=== PATIENT | female | born 1995 | race Asian ===

== ENCOUNTER 2017-06-18 07:04 | Emergency (ER) | payer SELFPAY ==
[2017-06-18 07:18] VITALS: BP 90/51
[2017-06-18] MEDS ORDERED: Rabies VIRUS VACCINE (Imovax)* 2.5 UNIT/ML 1 ML IM ONE (07:24)
--- NOTE | 2017-06-18 07:30 | UC ---
Bite Injury/Animal HPI - HPI Summary HPI Summary: 21yo female with a recent bite to her right lower abdomen while vacationing in the [facility] last month. Pt has already had rabies vaccine x2 and is here today for her 3rd vaccine in the series of 4. Wound healing well, no complaints today. - History of Current Complaint Chief Complaint: UCSkin Stated Complaint: PIG BITE Time Seen by Provider: 06/18/17 07:12 Hx Last Menstrual Period: 06/04/2017 ?: No Severity Initially: Mild Onset/Duration: Sudden Onset Type of Bite: Animal - Pig Character: Puncture Hx of Bite: Unprovoked - Allergies/Home Medications Allergies/Adverse Reactions: Allergies Allergy/AdvReac Type Severity Reaction Status Date / Time No Known Allergies Allergy Verified 06/18/17 07:18 Home Medications: Home Medications Unobtainable [Unobtainable] 06/18/17 [History Confirmed 06/18/17] PMH/Surg Hx/FS Hx/Imm Hx Previously Healthy: Yes - Surgical History Surgical History: None - Social History Alcohol Use: None Substance Use Type: None Smoking Status (MU): Never Smoked Tobacco - Immunization History Most Recent Tetanus Shot: 06/10/2017 Review of Systems Constitutional: Negative Skin: Other - pig bite on right lower abd Eyes: Negative ENT: Negative Respiratory: Negative Cardiovascular: Negative Gastrointestinal: Negative Genitourinary: Negative Motor: Negative Neurovascular: Negative Musculoskeletal: Negative Neurological: Negative Psychological: Negative All Other Systems Reviewed And Are Negative: Yes Physical Exam Triage Information Reviewed: Yes Vital Signs: Initial Vital Signs Temp 36.6 C 06/18/17 07:10 Pulse 60 06/18/17 07:10 Resp 16 06/18/17 07:10 BP 90/51 06/18/17 07:10 Pulse Ox 98 06/18/17 07:10 Eye Exam: Normal ENT Exam: Normal Dental Exam: Normal Neck exam: Normal Neck: Positive: 1 Respiratory Exam: Normal Cardiovascular Exam: Normal Abdominal Exam: Normal Musculoskeletal Exam: Normal Neurological Exam: Normal Psychological Exam: Normal Skin Exam: Other - old bite wound on right lower abd healing well, almost completely healed hypopigmented area, collagen remodeling stage 4 Bite Injury Course/Dx - Course Course Of Treatment: Imavax adminstered on left deltoid. Pt to return for her 4th dose of Imavax. - Differential Dx/Diagnosis Provider Diagnoses: pig bite Discharge - Discharge Plan Condition: Good Disposition: HOME Patient Education Materials: Rabies Vaccine (By injection) Additional Instructions: return for 4th vaccine in one week (day#14)
== END 2017-06-18 08:35 | disposition home or self-care (01) ==
LOC: UCEAST 07:04
DX: S31.1 Open wound of abdominal wall without penetration into peritoneal cavity (principal); W55.41 Bitten by pig; Z23 Encounter for immunization
CPT/HCPCS: 99201; G0463

== ENCOUNTER 2017-06-25 07:23 | Emergency (ER) | payer SELFPAY ==
[2017-06-25 07:31] VITALS: BP 92/58
[2017-06-25] MEDS ORDERED: Rabies VIRUS VACCINE (Imovax)* 2.5 UNIT/ML 1 ML IM ONE (07:36)
--- NOTE | 2017-06-25 08:37 | UC ---
Tomer Vasquez Angela, scribed for [facility] on 06/25/17 at 0804 . Bite Injury/Animal HPI - HPI Summary HPI Summary: In Room Note: This pt is a 21 y/o female presenting to [facility] for a rabies vaccine. Pt reports she was vacationing in the [facility] last month and was bitten by a pig. She states they had a pig island and one of them walked up to her and bit her on her abdomen. This pt has had 3 rabies vaccine in a series of 4. This is her fourth vaccine today. Pt denies any complaints, fever, abd pain. She notes having normal bowel movements. She denies any PMHx. Note: Vital signs are stable. Pt is afebrile. She was seen for her third rabies vaccine on 06/18 and now she is back a week later. Nurse's Note: rabies vaccine d/t pig bite. - History of Current Complaint Chief Complaint: UCBiteInjury Stated Complaint: RABIES Hx Obtained From: Patient Hx Last Menstrual Period: 05/31/17 Severity Currently: None Pain Intensity: 0 Pain Scale Used: 0-10 Numeric Type of Bite: Animal - pig Has Animal Been Immunized?: Unknown Character: Abrasion/Laceration Associated Signs And Symptoms: Positive: Negative Hx of Bite: Unprovoked - Allergies/Home Medications Allergies/Adverse Reactions: Allergies Allergy/AdvReac Type Severity Reaction Status Date / Time No Known Allergies Allergy Verified 06/25/17 07:27 Home Medications: Home Medications NK [No Home Medications Reported] 06/25/17 [History Confirmed 06/25/17] PMH/Surg Hx/FS Hx/Imm Hx Other Endocrine History: DENIES: diabetes Other Cardiovascular History: DENIES: HTN - Surgical History Surgical History: None - Family History Known Family History: Negative: Cardiac Disease, Hypertension, Diabetes - Social History Alcohol Use: None Substance Use Type: None Smoking Status (MU): Never Smoked Tobacco - Immunization History Most Recent Tetanus Shot: 06/10/2017 Review of Systems Constitutional: Negative Skin: Other - bite to abd Eyes: Negative ENT: Negative Respiratory: Negative Cardiovascular: Negative Gastrointestinal: Negative Genitourinary: Negative Motor: Negative Neurovascular: Negative Musculoskeletal: Negative Neurological: Negative Psychological: Negative Is Patient Immunocompromised?: No All Other Systems Reviewed And Are Negative: Yes Physical Exam Triage Information Reviewed: Yes Vital Signs: Initial Vital Signs Temp 97.3 F 06/25/17 07:28 Pulse 84 06/25/17 07:28 Resp 16 06/25/17 07:28 BP 92/58 06/25/17 07:28 Pulse Ox 100 06/25/17 07:28 Vital Signs Reviewed: Yes - Additional Comments The patient is well-nourished in no acute distress and in no acute pain. The skin is warm and dry and skin color reflects adequate perfusion. HEENT: The head is normocephalic and atraumatic. The pupils are equal and reactive. The conjunctivae are clear and without drainage. Nares are patent and without drainage. Mouth reveals moist mucous membranes and the throat is without erythema and exudate. The external ears are intact. The ear canals are patent and without drainage. The tympanic membranes are intact. Neck is supple with full range of motion and non-tender. There are no carotid bruits. There is no neck vein distension. Respiratory: Chest is non-tender. Lungs are clear to auscultation and breath sounds are symmetrical and equal. Cardiovascular: Hear is regular rate and rhythm. There is no murmur or rub auscultated. There is no peripheral edema and pulses are symmetrical and equal. Abdomen: The abdomen is soft and non-tender. There are normal bowel sounds heard in all four quadrants and there is no organomegaly palpated. ON THE RLQ, THERE IS AN ABRASION TYPE INJURY PROXIMALLY 2.5 CM LONG AT THE INGUINAL LIGAMENT. THERE IS NO CELLULITIS OR LYMPHANGITIS. Musculoskeletal: There is no back pain noted. Extremities are non-tender with full range of motion. There is good capillary refill. There is no peripheral edema or calf tenderness elicited. Neurological: Patient is alert and oriented to person, place and time. The patient has symmetrical motor strength in all four extremities. Cranial nerves are grossly intact. Deep tendon reflexes are symmetrical and equal in all four extremities. Psychiatric: The patient has an appropriate affect and does not exhibit any anxiety or depression. Bite Injury Course/Dx - Course Course Of Treatment: Medications have been included in the original chart and reviewed. Normal BP reading and no follow-up instructions required. In the physical exam, ON THE RLQ, THERE IS AN ABRASION TYPE INJURY PROXIMALLY 2.5 CM LONG AT THE INGUINAL LIGAMENT. THERE IS NO CELLULITIS OR LYMPHANGITIS. COT: Imovax vaccine to the right deltoid, completing the 4th dose series. - Differential Dx/Diagnosis Provider Diagnoses: Post exposure prophylaxis, 4th and final shot given Discharge - Discharge Plan Condition: Stable Disposition: HOME Patient Education Materials: Rabies Vaccine (By injection) Referrals: [facility] - Ganesh FRANCO [Primary Care Provider] - Additional Instructions: Thanks for filling out the My[employer]. You have now received your fourth and last shot for rabies, postexposure protection. Return if you have any new symptoms or concerns. Your wound looks as if it is healing well. The documentation as recorded by the Tomer mckeon Angela accurately reflects the service I personally performed and the decisions made by me, Vickey Monroe MD.
== END 2017-06-25 08:34 | disposition home or self-care (01) ==
LOC: UCEAST 07:23
DX: Z29.14 Encounter for prophylactic rabies immune globulin (principal)
CPT/HCPCS: 99211; G0463

== ENCOUNTER 2018-05-15 02:14 | Emergency (ER) | payer OTHER ==
[2018-05-15] MEDS ORDERED: Tetracaine 0.5% OPTH.SOL 15ML* BTL LEFT EYE ONE (02:20)
[2018-05-15] MEDS ORDERED: Tetracaine 0.5% OPTH.SOL 4 ML* 1 DROP BTL LEFT EYE ONE (02:20)
[2018-05-15] MEDS ORDERED: Fluorescein Sodium TOPICAL* 1 MG TEST STRIP ONE (02:24)
[2018-05-15] MEDS ORDERED: Tetracaine 0.5% OPTH.SOL 4 ML* 1 DROP BTL ONE (02:27)
--- NOTE | 2018-05-15 02:35 | ED ---
Complex/Multi-Sys Presentation - HPI Summary HPI Summary: A 22 y/o female presents to the ED c/o eye pain since the night of 05/14/2018. When she went to take her contacts out she scratched her eye. - History Of Current Complaint Chief Complaint: EDEyeProblem Time Seen by Provider: 05/15/18 02:26 Hx Obtained From: Patient Onset/Duration: Sudden Onset - Allergies/Home Medications Allergies/Adverse Reactions: Allergies Allergy/AdvReac Type Severity Reaction Status Date / Time No Known Allergies Allergy Verified 05/15/18 02:19 PMH/Surg Hx/FS Hx/Imm Hx Endocrine/Hematology History: Denies: Hx Diabetes Cardiovascular History: Denies: Hx Hypertension Infectious Disease History: No Infectious Disease History: Denies: Hx Clostridium Difficile, Hx Hepatitis, Hx Human Immunodeficiency Virus (HIV), Hx of Known/Suspected MRSA, Hx Shingles, Hx Tuberculosis, Hx Known/ Suspected VRE, Hx Known/Suspected VRSA, History Other Infectious Disease, Traveled Outside the in Last 30 Days - Family History Known Family History: Negative: Cardiac Disease, Hypertension, Diabetes - Social History Alcohol Use: None Substance Use Type: Reports: None Smoking Status (MU): Never Smoked Tobacco Review of Systems Negative: Fever Positive: Other - positive: scratch, pain All Other Systems Reviewed And Are Negative: Yes Physical Exam - Summary Physical Exam Summary: Appearance: Well-appearing, Well-nourished, lying in bed comfortable Skin: Warm, dry, no obvious rash Eyes: Does not appear inflamed, acuity grossly normal, upon fluorescent staining no corneal abrasion identified. ENT: mucous membranes moist Neck: deferred Respiratory: No signs of respiratory distress Cardiovascular: Appears well perfused, pulses are nml Abdomen: deferred Musculoskeletal: Moving all 4 extremities without obvious discomfort Neurological: Awake and alert, mentation is normal, speech is fluent and appropriate Psychiatric: affect is normal, does not appear anxious or depressed Triage Information Reviewed: Yes Vital Signs On Initial Exam: Initial Vitals Temp Pulse Resp BP Pulse Ox 98.8 F 76 12 109/46 99 05/15/18 02:15 05/15/18 02:15 05/15/18 02:15 05/15/18 02:15 05/15/18 02:15 Vital Signs Reviewed: Yes Diagnostics - Vital Signs Vital Signs Temp Pulse Resp BP Pulse Ox 05/15/18 02:15 98.8 F 76 12 109/46 99 - Laboratory Lab Statement: Any lab studies that have been ordered have been reviewed, and results considered in the medical decision making process. Complex Multi-Symp Course/Dx Course Of Treatment: A 22 y/o female presents to the ED c/o eye pain since the night of 05/14/2018. When she went to take her contacts out she scratched her eye. Her PE revealed that her not appear inflamed, acuity is grossly normal, upon fluorescent staining no corneal abrasion was identified. Dx: Eye pain. The pt will be discharged and is agreeable to this plan. - Diagnoses Provider Diagnoses: Eye pain Discharge - Sign-Out/Discharge Documenting (check all that apply): Patient Departure - DC - Discharge Plan Condition: Good Disposition: HOME Patient Education Materials: Eye Pain (ED) Additional Instructions: If your eye is not feeling better by Monday, you will need to see an insurance processing clerk or acid concentrator for further care. They will generally make time for same day appointments for problems like this. I do expect you will feel better by then. Use the antibiotic ointment 3-4 times a day for tomorrow. - Attestation Statements Document Initiated by Scribe: Yes Documenting Scribe: Cleve rBito Provider For Whom Scribe is Documenting (Include Credential): Alvaro Perez MD Scribe Attestation: I, Cleve Brito, scribed for Alvaro Perez MD on 05/15/18 at 0248.
[2018-05-15] MEDS ORDERED: Erythromycin OPTH OINT* APPLIC OINT ONE (02:51)
[2018-05-15] MEDS ORDERED: Erythromycin OPTH OINT* APPLIC OINT LEFT EYE SCH (03:00)
[2018-05-15 03:21] VITALS: BP 124/78
== END 2018-05-15 03:00 | disposition home or self-care (01) ==
LOC: ED 02:14
DX: H57.10 Ocular pain, unspecified eye (principal)
CPT/HCPCS: 99281; A9270-GY